=== PATIENT | female | born 1960 | race Caucasian/White ===

== ENCOUNTER 2018-01-11 18:07 | Emergency (ER) | payer MEDICARE, MEDICAID ==
[2018-01-11] MEDS ORDERED: Adacel (T-DAP) 0.5 ML VIAL ONE (19:29)
[2018-01-11] MEDS ORDERED: Ondansetron ODT 4 MG TAB ONE (19:37)
[2018-01-11] MEDS ORDERED: Ketorolac Tromethamine 30 MG/ML VIAL ONE (19:37)
--- NOTE | 2018-01-11 20:04 | CT ---
FACE CT WITHOUT CONTRAST: HISTORY: The patient fell a week ago. Post traumatic right jaw pain. COMPARISON: None. TECHNIQUE: A facial bones CT is performed in the axial plane. Reformatted images are submitted for interpretati on. FINDINGS: The visualized brain parenchyma is unremarkable. Bilateral ocular lenses are appropriately located. Both globes are intact. Retrobulbar fat is preserved. Symmetric attenuation of the optic nerves an d ocular rectus muscles. Coronal reformatted images demonstrate the osseous margins of the orbits to be intact. Additionally, the nasal septum is intact and midline. There is abnormal hypoattenuation in both ostiomeatal compl exes. Mild mucosal disease involving both maxillary sinuses. There is a small mucus retention cyst on the right maxillary sinus. Adequate aeration of the frontal sinuses and sphenoid sinuses. Adequate aeration of the mastoid air cells. The visualized upper cervical spine is unremarkable. The visualized aerodigestive tract is patent. No obvious mucosal abnormality . Limited evaluation o f the oral cavity by dental amalgam artifact. Midline fatty raphe of the tongue is preserved. The epiglottis has a normal caliber. The floor of t he mouth is unremarkable. There is a fracture involving the neck of the right mandible.0 No additional maxillofacial fractures. IMPRESSION: Right mandible fracture at the level of the neck of the mandible. POS: [facility]
--- NOTE | 2018-01-11 20:06 | RAD ---
ONE VIEW PELVIS: RIGHT RIBS TWO VIEWS: HISTORY: Trauma. Pain. Dizziness. COMPARISON: None. FINDINGS: RIBS: Mild bone demineralization. No fracture. No cortical irregularity or periosteal reaction. CHEST: Normal cardiac silhouette. Lungs and pleural spaces are clear. No pneumothorax or osseous a bnormalities. Mild hyperinflation with presumed chronic changes. Cervical fusion hardware is noted. Calcified right hilar lymph nodes are noted. IMPRESSION: 1. No evidence of a right rib fracture. 2. No acute cardiopulmonary process. POS: [facility]
--- NOTE | 2018-01-11 20:10 | RAD ---
LEFT RIBS TWO VIEWS: HISTORY: Fall. Trauma. Pain. COMPARISON: None. FINDINGS: No fracture. No cortical irregularity or periosteal reaction. There is mild bone demineralization. IMPRESSION: No fracture. POS: [facility]
== END 2018-01-11 19:49 | disposition home or self-care (01) ==
LOC: NAV ERS 18:07
DX: S02.609A Fracture of mandible, unspecified, initial encounter for closed fracture (principal); S01.512A Laceration without foreign body of oral cavity, initial encounter; S20.01XA Contusion of right breast, initial encounter; S20.211A Contusion of right front wall of thorax, initial encounter; I10 Essential (primary) hypertension; F17.210 Nicotine dependence, cigarettes, uncomplicated; Z79.891 Long term (current) use of opiate analgesic; Z79.899 Other long term (current) drug therapy; W01.190A Fall on same level from slipping, tripping and stumbling with subsequent striking against furniture, initial encounter; Y92.002 Bathroom of unspecified non-institutional (private) residence as the place of occurrence of the external cause
CPT/HCPCS: 70486; 90471; 90715; 96372; J1885; Q0162

== ENCOUNTER 2020-04-30 13:28 | Emergency (ER) | payer MEDICARE, MEDICAID, OTHER ==
[2020-05-01 15:18] LABS: SARS-CoV-2 MS2 Positive; SARS-CoV-2 N Gene Negative; SARS-CoV-2 S Gene Negative; SARS-CoV-2 by NAA Not Detected (NotDetected); SARS-CoV-2 orf1ab Negative
== END 2020-04-30 14:53 | disposition home or self-care (01) ==
LOC: NAV ERS 13:28
DX: H60.91 Unspecified otitis externa, right ear (principal); J06.9 Acute upper respiratory infection, unspecified; Z20.828 Contact with and (suspected) exposure to other viral communicable diseases; I10 Essential (primary) hypertension; F32.9 Major depressive disorder, single episode, unspecified; F17.210 Nicotine dependence, cigarettes, uncomplicated; Z79.899 Other long term (current) drug therapy
CPT/HCPCS: 87635; 99283; U0003

== ENCOUNTER 2020-11-15 13:43 | Emergency (ER) | payer MEDICARE, MEDICAID ==
--- NOTE | 2020-11-15 14:37 | RAD ---
Exam: XR Foot Rt 3 View STANDARD HISTORY: Pain along the inner right foot and base of foot below great toe after fall. Injury to right foot. COMPARISON: None FINDINGS: The Lisfranc joint is normally aligned. No fracture, dislocation, or other osseous abnormality is see n involving the right foot. IMPRESSION: No acute osseous abnormality is identified.
== END 2020-11-15 15:00 | disposition home or self-care (01) ==
LOC: NAV ERS 13:43
DX: S93.601A Unspecified sprain of right foot, initial encounter (principal); F17.210 Nicotine dependence, cigarettes, uncomplicated; W18.42XA Slipping, tripping and stumbling without falling due to stepping into hole or opening, initial encounter

== ENCOUNTER → 2021-10-18 | Emergency (ER) | payer MEDICARE, MEDICAID ==
[~2021-10-18] MED LIST: Acetaminophen 325 MG TAB ONE; Acetaminophen 500 MG TAB ONE; Aspirin 325 MG TAB ONE; Azithromycin 500 MG VIAL ONE; Dexamethasone 4 mg/ml Vial ONE; Ibuprofen 200 MG TAB ONE; Iopamidol 370 76% 100 ML VIAL ONE; Ondansetron PF 4 MG/2 ML Vial ONE; Sodium Chloride 0.9% 1,000 ML ONE; Sodium Chloride 0.9% 100 ML ONE; Sodium Chloride 0.9% 250 ML 0 ML ONE; cefTRIAXone\\ROCEPHIN 2 GM VIAL ONE
[2021-10-18 19:39] LABS: #Lymphocytes 1.7 thou/uL (1.20-3.40); #Monocytes 1.2 thou/uL (0.11-0.59); #Neutrophils 6.8 thou/uL (1.40-6.50); %Basophils 0.3 % (0.0-1.0); %Eosinophils 0.3 % (0.0-10.0); %Lymphocytes 17.1 % (21.0-51.0); %Monocytes 12.4 % (0.0-10.0); %Neutrophils 69.8 % (42.0-75.0); Hemoglobin 12.9 g/dL (12.0-16.0); Mean Corpuscular HGB CONC 32.9 g/dL (32.0-36.0); Mean Corpuscular Hemoglobin 32.5 pg (27.0-31.0); Mean Corpuscular Volume 98.7 fL (78.0-98.0); Mean Platelet Volume 6.1 fL (7.4-10.4); Platelet Count 289 thou/uL (130-400); RBC Distribution Width 10.8 % (11.5-14.5); Red Blood Cell (RBC) Count 3.96 mill/uL (4.20-5.40); White Blood Cell (WBC) Count 9.7 thou/uL (4.8-10.8)
[2021-10-18 19:55] LABS: ALT (SGPT) 60 U/L (8-55); AST (SGOT) 32 U/L (5-34); Alkaline Phosphatase 152 U/L (40-110); Anion Gap 12 mmol/L (10-20); BUN (Urea Nitrogen) 8 mg/dL (9.8-20.1); Bilirubin, Total 0.8 mg/dL (0.2-1.2); Calc. Creatinine Clearance 0 mL/min (70-130); Calcium 8.7 mg/dL (7.8-10.44); Carbon Dioxide 27 mmol/L (22-29); Chloride 100 mmol/L (98-107); Globulin 3.1 g/dL (2.4-3.5); Glucose 104 mg/dL (70-105); Potassium 3.4 mmol/L (3.5-5.1); Protein, Total 7.1 g/dL (6.0-8.3); Sodium 136 mmol/L (136-145)
[2021-10-18 21:30] LABS: SARS-CoV-2 NAA Rapid Test DETECTED (NotDetected)
[2021-10-19 03:00] LABS: Bilirubin Negative (Negative); Blood, Urine Negative (Negative); Clarity Clear (Clear); Glucose, Urine (Dipstick) Negative (Negative); Ketone, Urine Negative (Negative); Leukocyte Negative (Negative); Nitrite Negative (Negative); Protein, Urine (Dipstick) Negative (Neg-Trace)
[2021-10-19 03:12] LABS: Amphetamine Not Detected (NotDetected); Barbiturates Screen Not Detected (NotDetected); Benzodiazepine Screen Not Detected (NotDetected); Cocaine Metabolite Screen Not Detected (NotDetected); Medtox Control Line Valid? VALID (VALID); Methadone Not Detected (NotDetected); Methamphetamine Not Detected (NotDetected); Opiate Screen Detected (NotDetected); Oxycodone Screen Not Detected (NotDetected); Phencyclidine (PCP) Not Detected (NotDetected); THC/Cannabinoid Screen Detected (NotDetected); Tricyclic Screen Detected (NotDetected)
== END ==
LOC: NAV ERS 18:57
DX: U07.1 COVID-19 (principal); J12.82 Pneumonia due to coronavirus disease 2019; F17.210 Nicotine dependence, cigarettes, uncomplicated
CPT/HCPCS: 71045; 71275; 80053; 80306; 81003; 83605; 84484; 85025; 85379; 87040; 87804; 93005; 94760; 96365; 96367; 96375; J0456; J0696; J1100; J2405; J3490; J7050; Q9967; U0002